=== PATIENT | female | born 1930 | race Caucasian/White ===

== ENCOUNTER 2018-02-03 16:04 | Emergency (ER) | payer OTHER ==
[~2018-02-03] VITALS: Ht 162.6 cm; Wt 65.1 kg
[2018-02-03 18:00] LABS: BASOPHIL (%) 0.2 % (0-1); EOSINOPHIL (%) 2.1 % (0-5); EOSINOPHIL COUNT 0.2 K/uL (0-0.3); HEMATOCRIT 40.1 % (36.0-46.0); HEMOGLOBIN 13.8 G/DL (11.9-15.5); IMMATURE GRANULOCYTE (%) 0.4 % (0.0-0.7); LYMPHOCYTE COUNT 1.5 K/uL (1.0-2.8); MCH 30.9 PG (29.0-34.0); MCHC 34.4 G/DL (30.0-36.0); MCV 89.9 FL (83-99); MONOCYTE (%) 5.4 % (3-12); MONOCYTE COUNT 0.4 K/uL (0-0.8); NEUTROPHIL (%) 73.9 % (45-76); PLATELET COUNT 231 K/uL (156-360); RBC DIS.WIDTH-SD 42.7 % (39-53); RED BLOOD COUNT 4.46 M/uL (3.80-5.20); WHITE BLOOD COUNT 8.2 K/uL (4.1-10.2)
[2018-02-03 18:13] LABS: ALBUMIN 3.9 g/dL (3.2-4.8); CHLORIDE 102 mEq/L (99-109); POTASSIUM 3.4 mEq/L (3.7-5.4); SODIUM 141 mEq/L (136-147)
[2018-02-03 18:15] LABS: GLUCOSE 149 mg/dL (70-99)
[2018-02-03 18:16] LABS: TOTAL PROTEIN 6.6 g/dL (6.4-8.3)
[2018-02-03 18:17] LABS: TOTAL BILIRUBIN 0.6 mg/dL (0.0-1.0)
[2018-02-03 18:19] LABS: ALKALINE PHOSPHATASE 67 IU/L (3-129); CREATININE 1.5 mg/dL (0.6-1.3); GFR ESTIMATE (CALCULATED) 35 mL/min/
[2018-02-03 18:20] LABS: PTT 23.3 SEC (25-37); UREA NITROGEN (BUN) 28 mg/dL (9-23)
[2018-02-03 18:21] LABS: AST (GOT) 34 IU/L (2-34); DIRECT BILIRUBIN 0.2 mg/dL (0.0-0.3)
[2018-02-03 18:22] LABS: ALT (GPT) 25 IU/L (3-49)
[2018-02-03 18:22] LABS: TROP-I INTERPRETATION NEGATIVE; TROPONIN-I < 0.01 ng/mL (0.0-0.30)
[2018-02-03 20:25] LABS: APPEARANCE SL.HAZY ((CLEAR)); BILIRUBIN NEGATIVE; BLOOD MODERATE; COLOR YELLOW ((YELLOW)); GLUCOSE (STRIP) NEGATIVE; KETONES NEGATIVE; LEUKOCYTES MODERATE; NITRITE NEGATIVE; PROTEIN (STRIP) 30
[2018-02-03 20:33] LABS: BACTERIA RARE /HPF; EPITHELIAL CELLS 2+ /HPF; HYALINE CASTS 0-5 /LPF; MUCUS TRACE /LPF; UCUL ADDED? YES; WHITE BLOOD CELLS 15-20 /HPF (0-5)
[2018-02-03] MEDS ORDERED: KEFLEX500 MG PO (20:49)
[2018-02-03 21:55] VITALS: BP 107/65
== END 2018-02-03 23:53 | disposition home or self-care (01) ==
LOC: EME 16:04
PROVIDERS: Emergency Medicine
DX: N39.0 Urinary tract infection, site not specified (principal); F03.90 Unspecified dementia, unspecified severity, without behavioral disturbance, psychotic disturbance, mood disturbance, and anxiety; Z88.2 Allergy status to sulfonamides
CPT/HCPCS: 71045; 80048; 80076; 81003; 83605; 83880; 84484; 85025; 85610; 85730; 99281; 99285; J0696; J2250; J7030

== ENCOUNTER 2018-02-11 15:55 | Emergency (ER) | payer OTHER ==
[~2018-02-11] VITALS: Ht 167.6 cm; Wt 63.6 kg
[~2018-02-11 15:55] MED LIST: KEFLEX500 MG PO
[2018-02-11 21:48] LABS: HEMATOCRIT 36.6 % (36.0-46.0); HEMOGLOBIN 12.6 G/DL (11.9-15.5); MCH 30.7 PG (29.0-34.0); MCHC 34.4 G/DL (30.0-36.0); MCV 89.3 FL (83-99); PLATELET COUNT 194 K/uL (156-360); RBC DIS.WIDTH-SD 42.6 % (39-53)
[2018-02-11 21:58] LABS: CHLORIDE 101 mEq/L (99-109); POTASSIUM 3.5 mEq/L (3.7-5.4); SODIUM 140 mEq/L (136-147)
[2018-02-11 21:59] LABS: GLUCOSE 128 mg/dL (70-99)
[2018-02-11 22:03] LABS: CREATININE 1.2 mg/dL (0.6-1.3); GFR ESTIMATE (CALCULATED) 45 mL/min/
[2018-02-11 22:04] LABS: UREA NITROGEN (BUN) 27 mg/dL (9-23)
[2018-02-11 22:54] LABS: APPEARANCE CLOUDY ((CLEAR)); BILIRUBIN NEGATIVE; BLOOD MODERATE; COLOR YELLOW ((YELLOW)); GLUCOSE (STRIP) NEGATIVE; KETONES NEGATIVE; LEUKOCYTES LARGE; NITRITE NEGATIVE; PROTEIN (STRIP) 30; SPECIFIC GRAVITY 1.016 (1.000-1.030); UROBILINOGEN 0.2 MG/DL (0.2-1.0)
[2018-02-11 23:24] LABS: BACTERIA 3+ /HPF; EPITHELIAL CELLS 1+ /HPF; MUCUS RARE /LPF; UCUL ADDED? YES
[2018-02-11] MEDS ORDERED: MACROBID100 MG PO (23:35)
[2018-02-12 00:42] VITALS: BP 101/53
== END 2018-02-12 00:43 | disposition home or self-care (01) ==
LOC: EME 15:55
PROVIDERS: Emergency Medicine
DX: N39.0 Urinary tract infection, site not specified (principal); F03.90 Unspecified dementia, unspecified severity, without behavioral disturbance, psychotic disturbance, mood disturbance, and anxiety; R62.7 Adult failure to thrive; Z88.2 Allergy status to sulfonamides
CPT/HCPCS: 71046; 80048; 81003; 85027; 87086; 99281; 99285; J0696; J7030